=== PATIENT | female | born 1940 | race Caucasian/White ===

== ENCOUNTER 2016-02-07 12:15 | Inpatient (IN) | payer OTHER ==
[~2016-02-07] VITALS: Ht 160 cm; Wt 118.0 kg
[~2016-02-07 12:15] MED LIST: ADVAIR HFA120 INHAL2 IH; ALBUTEROL SULF8.5 GM IH; ALBUTEROL17 GM IH; ALDACTONE25 MG PO; ASPIR 8181 M1 PO; ASPIRIN81 M2 PO; Aldactone PO; BENADRYL25 MG PO; BYSTOLIC10 MG PO; BYSTOLIC5 MG PO; Bystolic PO; CEFTIN500 MG PO; CRESTOR10 MG PO; CRESTOR5 MG PO; DICLOFENAC SODI75 MG PO; DILTIAZEM 24HR120 MG PO; FLONASE16 G1 BOTH NARES; FUROSEMIDE20 MG PO; Flonase BOTH NARES; Flonase NS; HYDROCHLOROTH12.5 M3 PO; JANUVIA100 MG PO; JANUVIA25 M1 PO; Januvia PO; KEFLEX500 MG PO; LANTUS 10100 UNITS/ SC; LASIX20 MG PO; LASIX40 MG PO; LASIX80 MG PO; LEVEMIR100 UNIT/2 SC; Lasix PO; MAVIK4 MG PO; Mavik PO; NORCO 5/3251 TABLET PO; NOVOLOG PE100 UNITS/ SC; NUCYNTA50 MG PO; OXYCODONE HCL5 M1 PO; PEPCID20 MG PO; PRADAXA150 MG PO; PROAIR HFA8.5 GM IH; Pradaxa PO; Proventil,Ventolin H IH; ROCEPHIN1000 MG IV; SOLU-MEDRO125 MG/21 IV; SPIRIVA1 INHALATI IH; SPIRONOLACTONE25 MG PO; STIOLTO RESPIMAT4 GM IH; TARKA 4/2401 TABLET PO; TEKTURNA300 MG PO; TRAMADOL; TRAMADOL HCL50 MG PO; ULTRAM50 MG PO; Ultram PO; VESICARE10 MG PO; Vitamin D, Drisdol PO
[2016-02-07] MEDS ORDERED: LOPRESSOR5 MG/5 ML IV (12:47)
[2016-02-07] MEDS ORDERED: SPIRIVA1 INHALATI IH (12:48)
[2016-02-07] MEDS ORDERED: COLACE100 MG PO (12:49)
[2016-02-07] MEDS ORDERED: SALINE FLUSH 5 M5 ML IV (12:49)
[2016-02-07] MEDS ORDERED: TYLENOL REGULA325 MG PO (12:50)
[2016-02-07 13:52] LABS: POINT-OF-CARE METER ID UU13113720
[2016-02-07 15:14] VITALS: BP 129/73
[2016-02-07 21:24] LABS: POINT-OF-CARE METER ID UU14174215
[2016-02-07 21:42] LABS: POINT-OF-CARE METER ID UU13113720
[2016-02-08 00:12] VITALS: BP 124/86
[2016-02-08 04:00] VITALS: BP 155/98
[2016-02-08 07:39] LABS: POINT-OF-CARE METER ID UU13113720
[2016-02-08 10:41] VITALS: BP 153/77
[2016-02-08 11:31] LABS: POINT-OF-CARE METER ID UU13113720
[2016-02-08 15:25] VITALS: BP 141/89
[2016-02-08 15:29] LABS: ANION GAP 11 MEQ/L (2-14); CHLORIDE 98 MEQ/L (99-109); GFR ESTIMATE (CALCULATED) 57 mL/min/; GLUCOSE 298 mg/dL (70-99); MAGNESIUM 2.1 mg/dl (1.3-2.7); POTASSIUM 4.4 MEQ/L (3.7-5.4); SAMPLE HEMOLYSIS CHECK 0; SAMPLE ICTERIC CHECK 0; SAMPLE LIPEMIA CHECK 0; SODIUM 135 MEQ/L (136-147); UREA NITROGEN (BUN) 34 mg/dL (9-23)
[2016-02-08 16:28] LABS: POINT-OF-CARE METER ID UU13113720
[2016-02-08 22:01] LABS: POINT-OF-CARE METER ID UU13113720
[2016-02-09 04:00] VITALS: BP 137/87
[2016-02-09 07:19] LABS: POINT-OF-CARE METER ID UU13113720
[2016-02-09 11:26] LABS: POINT-OF-CARE METER ID UU13113720
[2016-02-09 15:54] VITALS: BP 179/99
[2016-02-09 16:22] VITALS: BP 136/76
[2016-02-09 16:31] LABS: POINT-OF-CARE METER ID UU13113720
[2016-02-09 21:02] LABS: POINT-OF-CARE METER ID UU13113720
[2016-02-10 05:47] VITALS: BP 140/72
[2016-02-10 07:32] LABS: POINT-OF-CARE METER ID UU14174215
[2016-02-10 11:03] LABS: POINT-OF-CARE METER ID UU14174215
[2016-02-10 14:43] VITALS: BP 117/77
[2016-02-10 16:33] LABS: POINT-OF-CARE METER ID UU14174215
[2016-02-10 21:04] LABS: POINT-OF-CARE METER ID UU14174215
[2016-02-11 05:39] VITALS: BP 133/71
[2016-02-11 06:52] LABS: POINT-OF-CARE METER ID UU14174215; POINT-OF-CARE USER ID ENVGAF
[2016-02-11 11:15] LABS: POINT-OF-CARE METER ID UU14174215; POINT-OF-CARE USER ID ENVGAF
[2016-02-11 16:00] VITALS: BP 112/68
[2016-02-11 17:03] LABS: POINT-OF-CARE METER ID UU14174215
[2016-02-11 21:20] LABS: POINT-OF-CARE METER ID UU14174215
[2016-02-12 05:37] VITALS: BP 143/80
[2016-02-12 07:26] LABS: POINT-OF-CARE METER ID UU13113720
[2016-02-12 11:38] LABS: POINT-OF-CARE METER ID UU13113720
[2016-02-12 15:00] VITALS: BP 127/64
[2016-02-12 16:39] LABS: POINT-OF-CARE METER ID UU14174215
[2016-02-12 20:55] LABS: POINT-OF-CARE METER ID UU14174215; POINT-OF-CARE USER ID 610211320
[2016-02-13 05:52] VITALS: BP 130/77
[2016-02-13 06:26] LABS: EOSINOPHIL (%) 0.6 % (0-5); EOSINOPHIL COUNT 0.1 K/uL (0-0.3); HEMATOCRIT 40.5 % (36.0-46.0); IMMATURE GRANULOCYTE (%) 2.3 % (0.0-0.7); IMMATURE GRANULOCYTE COUNT 0.3 K/uL; LYMPHOCYTE COUNT 1.2 K/uL (1.0-2.8); MCH 29.5 PG (29.0-34.0); MCHC 31.6 G/DL (30.0-36.0); MCV 93.3 FL (83-99); MEAN PLAT.VOLUME 10.8 uM^3 (9.5-12.4); MONOCYTE (%) 4.6 % (3-12); MONOCYTE COUNT 0.5 K/uL (0-0.8); NEUTROPHIL COUNT 9.2 K/uL (1.8-6.4); PLATELET COUNT 237 K/uL (156-360); RBC DIS.WIDTH-CV 15.6 % (11.8-14.6); RBC DIS.WIDTH-SD 52.5 % (39-53); RED BLOOD COUNT 4.34 M/uL (3.80-5.20)
[2016-02-13 06:27] LABS: WHITE BLOOD COUNT 11.2 K/uL (4.1-10.2)
[2016-02-13 06:39] LABS: ALKALINE PHOSPHATASE 53 IU/L (3-129); ANION GAP 9 MEQ/L (2-14); CHLORIDE 98 MEQ/L (99-109); GFR ESTIMATE (CALCULATED) 57 mL/min/; GLUCOSE 91 mg/dL (70-99); POTASSIUM 4.1 MEQ/L (3.7-5.4); SAMPLE HEMOLYSIS CHECK 0; SAMPLE ICTERIC CHECK 0; SAMPLE LIPEMIA CHECK 0; SODIUM 139 MEQ/L (136-147); TOTAL BILIRUBIN 1.1 MG/DL (0.0-1.0); UREA NITROGEN (BUN) 25 mg/dL (9-23)
[2016-02-13 06:54] LABS: HEMATOLOGY COMMENT 1 SMEAR COMPATIBLE; USER ID CCL
[2016-02-13 08:00] VITALS: BP 124/71
[2016-02-13 08:30] LABS: POINT-OF-CARE METER ID UU13113720
[2016-02-13 11:47] LABS: POINT-OF-CARE METER ID UU13113720
[2016-02-13 15:00] VITALS: BP 128/59
[2016-02-13 16:53] LABS: POINT-OF-CARE METER ID UU13113720
[2016-02-13 21:35] LABS: POINT-OF-CARE METER ID UU13113720
[2016-02-14 04:00] VITALS: BP 111/68
[2016-02-14 07:31] LABS: POINT-OF-CARE METER ID UU14174215
[2016-02-14 11:57] LABS: POINT-OF-CARE METER ID UU13113720
[2016-02-14 15:33] VITALS: BP 115/65
[2016-02-14 16:03] LABS: POINT-OF-CARE METER ID UU13113720
[2016-02-14 20:57] LABS: POINT-OF-CARE METER ID UU13113720
[2016-02-15 05:27] VITALS: BP 120/75
[2016-02-15 07:30] LABS: POINT-OF-CARE METER ID UU14174215; POINT-OF-CARE USER ID AHSSSJB31
[2016-02-15 11:57] LABS: POINT-OF-CARE METER ID UU13113720
[2016-02-15 16:20] LABS: POINT-OF-CARE METER ID UU13113720
[2016-02-15 21:17] LABS: POINT-OF-CARE METER ID UU13113720; POINT-OF-CARE USER ID 610211320
[2016-02-16] VITALS: BP 122/61
[2016-02-16 05:27] VITALS: BP 126/67
[2016-02-16 06:21] LABS: HEMATOCRIT 35.4 % (36.0-46.0); MCH 30.1 PG (29.0-34.0); MCHC 31.9 G/DL (30.0-36.0); MCV 94.4 FL (83-99); MEAN PLAT.VOLUME 10.5 uM^3 (9.5-12.4); PLATELET COUNT 208 K/uL (156-360); RBC DIS.WIDTH-CV 16.3 % (11.8-14.6); RBC DIS.WIDTH-SD 55.3 % (39-53); RED BLOOD COUNT 3.75 M/uL (3.80-5.20); WHITE BLOOD COUNT 8.4 K/uL (4.1-10.2)
[2016-02-16 06:31] LABS: EOSINOPHIL (%) 0.6 % (0-5); EOSINOPHIL COUNT 0.1 K/uL (0-0.3); IMMATURE GRANULOCYTE (%) 1.2 % (0.0-0.7); IMMATURE GRANULOCYTE COUNT 0.1 K/uL; LYMPHOCYTE COUNT 0.9 K/uL (1.0-2.8); MONOCYTE (%) 6.9 % (3-12); MONOCYTE COUNT 0.6 K/uL (0-0.8); NEUTROPHIL (%) 80.5 % (45-76); NEUTROPHIL COUNT 6.8 K/uL (1.8-6.4)
[2016-02-16 07:44] LABS: POINT-OF-CARE METER ID UU13113720
[2016-02-16 11:47] LABS: POINT-OF-CARE METER ID UU13113720; POINT-OF-CARE USER ID AHSSSJB31
[2016-02-16 15:25] VITALS: BP 104/66
[2016-02-16 16:41] LABS: POINT-OF-CARE METER ID UU13113720
[2016-02-16 21:41] LABS: POINT-OF-CARE METER ID UU13113720
[2016-02-17 04:46] VITALS: BP 142/73
[2016-02-17 05:34] LABS: MCH 30.4 PG (29.0-34.0); MCHC 32.4 G/DL (30.0-36.0); MCV 93.9 FL (83-99); MEAN PLAT.VOLUME 10.6 uM^3 (9.5-12.4); PLATELET COUNT 201 K/uL (156-360); RBC DIS.WIDTH-CV 16.4 % (11.8-14.6); RBC DIS.WIDTH-SD 55.7 % (39-53); RED BLOOD COUNT 3.62 M/uL (3.80-5.20); WHITE BLOOD COUNT 7.6 K/uL (4.1-10.2)
[2016-02-17 06:12] LABS: ALKALINE PHOSPHATASE 49 IU/L (3-129); ANION GAP 6 MEQ/L (2-14); CHLORIDE 99 MEQ/L (99-109); GFR ESTIMATE (CALCULATED) 57 mL/min/; GLUCOSE 108 mg/dL (70-99); MAGNESIUM 2.4 mg/dl (1.3-2.7); SAMPLE HEMOLYSIS CHECK 0; SAMPLE ICTERIC CHECK 0; SAMPLE LIPEMIA CHECK 0; SODIUM 137 MEQ/L (136-147); TOTAL BILIRUBIN 1.1 MG/DL (0.0-1.0); UREA NITROGEN (BUN) 23 mg/dL (9-23)
[2016-02-17 06:24] LABS: POTASSIUM 5.1 MEQ/L (3.7-5.4)
[2016-02-17 07:26] LABS: POINT-OF-CARE METER ID UU14174215
[2016-02-17 11:47] LABS: POINT-OF-CARE METER ID UU14174215
[2016-02-17 15:12] VITALS: BP 120/62
[2016-02-17 16:20] LABS: POINT-OF-CARE METER ID UU14174215
[2016-02-17 21:26] LABS: POINT-OF-CARE METER ID UU14174215
[2016-02-18 05:00] VITALS: BP 126/61
[2016-02-18 07:33] LABS: POINT-OF-CARE METER ID UU14174215
[2016-02-18 10:46] LABS: POINT-OF-CARE METER ID UU14174215
[2016-02-18 11:54] LABS: POINT-OF-CARE METER ID UU14174215
[2016-02-18 15:51] VITALS: BP 137/63
[2016-02-18 16:34] LABS: POINT-OF-CARE METER ID UU14174215
[2016-02-18 21:27] LABS: POINT-OF-CARE METER ID UU13113720
[2016-02-19 06:29] VITALS: BP 107/68
[2016-02-19 07:40] LABS: POINT-OF-CARE METER ID UU14174215
[2016-02-19 12:00] LABS: POINT-OF-CARE METER ID UU14174215
[2016-02-19 15:00] VITALS: BP 124/60
[2016-02-19 16:50] LABS: POINT-OF-CARE METER ID UU14174215
[2016-02-19 21:17] LABS: POINT-OF-CARE METER ID UU14174215; POINT-OF-CARE USER ID 610211320
[2016-02-20 05:18] LABS: HEMATOCRIT 33.2 % (36.0-46.0); MCH 30.7 PG (29.0-34.0); MCHC 32.2 G/DL (30.0-36.0); MCV 95.1 FL (83-99); MEAN PLAT.VOLUME 10.3 uM^3 (9.5-12.4); PLATELET COUNT 160 K/uL (156-360); RBC DIS.WIDTH-CV 17.1 % (11.8-14.6); RED BLOOD COUNT 3.49 M/uL (3.80-5.20); WHITE BLOOD COUNT 5.6 K/uL (4.1-10.2)
[2016-02-20 05:45] LABS: ALKALINE PHOSPHATASE 56 IU/L (3-129); ANION GAP 8 MEQ/L (2-14); CHLORIDE 100 MEQ/L (99-109); GFR ESTIMATE (CALCULATED) > 59 mL/min/; GLUCOSE 102 mg/dL (70-99); SAMPLE HEMOLYSIS CHECK 0; SAMPLE ICTERIC CHECK 0; SAMPLE LIPEMIA CHECK 0; SODIUM 138 MEQ/L (136-147); TOTAL BILIRUBIN 1.1 MG/DL (0.0-1.0); UREA NITROGEN (BUN) 17 mg/dL (9-23)
[2016-02-20 05:47] LABS: POTASSIUM 3.8 MEQ/L (3.7-5.4)
[2016-02-20 06:10] VITALS: BP 130/73
[2016-02-20 07:29] LABS: POINT-OF-CARE METER ID UU13113720
[2016-02-20 10:55] LABS: POINT-OF-CARE METER ID UU13113720
[2016-02-20 12:45] LABS: POINT-OF-CARE METER ID UU14174215
[2016-02-20 15:21] VITALS: BP 111/59
[2016-02-20 16:33] LABS: POINT-OF-CARE METER ID UU13113720
[2016-02-20 21:33] LABS: POINT-OF-CARE METER ID UU13113720; POINT-OF-CARE USER ID 610211320
[2016-02-21 05:30] VITALS: BP 124/66
[2016-02-21 07:20] LABS: POINT-OF-CARE METER ID UU13113720
[2016-02-21 11:32] LABS: POINT-OF-CARE METER ID UU13113720
[2016-02-21] MEDS ORDERED: VITAMIN D-32000 UNI2 PO (15:27)
[2016-02-21] MEDS ORDERED: GABAPENTIN300 MG PO (15:27)
[2016-02-21] MEDS ORDERED: STIOLTO RESPIMAT4 GM IH (15:27)
[2016-02-21 15:30] VITALS: BP 115/55
[2016-02-21 16:20] LABS: POINT-OF-CARE METER ID UU13113720
[2016-02-21] MEDS ORDERED: ADVAIR HFA120 INHAL2 IH (17:53)
== END 2016-02-21 18:25 | disposition home health service (06) | DRG 871 ==
LOC: 3WEST 12:15
PROVIDERS: Internal Medicine Cardiovascular Disease; Physical Medicine & Rehabilitation Pain Medicine; Psychiatry & Neurology Neurology
PROC: F07M0ZZ Range of Motion and Joint Mobility Treatment of Musculoskeletal System - Whole Body (ICD-10-PCS; principal; 2016-02-07)
PROC: 5A09357 Assistance with Respiratory Ventilation, Less than 24 Consecutive Hours, Continuous Positive Airway Pressure (ICD-10-PCS; 2016-02-07)
DX: A41.51 Sepsis due to Escherichia coli [E. coli] (principal); G93.40 Encephalopathy, unspecified; N39.0 Urinary tract infection, site not specified; I50.32 Chronic diastolic (congestive) heart failure; G72.81 Critical illness myopathy; Z68.42 Body mass index [BMI] 45.0-49.9, adult; J44.1 Chronic obstructive pulmonary disease with (acute) exacerbation; I48.0 Paroxysmal atrial fibrillation; E11.9 Type 2 diabetes mellitus without complications; G47.33 Obstructive sleep apnea (adult) (pediatric); I10 Essential (primary) hypertension; E55.9 Vitamin D deficiency, unspecified; I34.0 Nonrheumatic mitral (valve) insufficiency; E78.5 Hyperlipidemia, unspecified; I27.2 Other secondary pulmonary hypertension; E66.9 Obesity, unspecified; I73.9 Peripheral vascular disease, unspecified; I77.1 Stricture of artery; M48.06 Spinal stenosis, lumbar region; I71.4 Abdominal aortic aneurysm, without rupture; N28.9 Disorder of kidney and ureter, unspecified; Z88.1 Allergy status to other antibiotic agents; Z79.82 Long term (current) use of aspirin; Z79.4 Long term (current) use of insulin; Z87.891 Personal history of nicotine dependence; Z99.81 Dependence on supplemental oxygen; Z99.89 Dependence on other enabling machines and devices; S80.02XA Contusion of left knee, initial encounter; W19.XXXA Unspecified fall, initial encounter
CPT/HCPCS: 71020; 73564; 80048; 80053; 82306; 82607; 82746; 82948; 83735; 83880; 85025; 85027; 93925; 94640; 94640 76; 94660; 94760; 94799; 97110 GO; 97530 GP; J0696; J1815; J2920; J7050; J7512

== ENCOUNTER 2016-02-25 21:13 | Inpatient (IN) | payer OTHER ==
[~2016-02-25] VITALS: Ht 160 cm; Wt 118.7 kg
[~2016-02-25 21:13] MED LIST changes: +COLACE100 MG PO; +GABAPENTIN300 MG PO; +LOPRESSOR5 MG/5 ML IV; +SALINE FLUSH 5 M5 ML IV; +TYLENOL REGULA325 MG PO; +VITAMIN D-32000 UNI2 PO
[2016-02-25 21:38] LABS: MCH 30.3 PG (29.0-34.0); MCHC 32.2 G/DL (30.0-36.0); MCV 94.1 FL (83-99); MEAN PLAT.VOLUME 9.3 uM^3 (9.5-12.4); PLATELET COUNT 191 K/uL (156-360); RBC DIS.WIDTH-SD 55.6 % (39-53); WHITE BLOOD COUNT 6.2 K/uL (4.1-10.2)
[2016-02-25 21:47] LABS: CHLORIDE 100 mEq/L (99-109); SODIUM 133 mEq/L (136-147)
[2016-02-25 21:49] LABS: GLUCOSE 174 mg/dL (70-99)
[2016-02-25 21:50] LABS: ANION GAP 11 MEQ/L (2-14); INTER. NORMALIZED RATIO 1.3; PROTHROMBIN TIME 12.8 (9.2-11.2); PTT 49.5 (25-32)
[2016-02-25 21:53] LABS: GFR ESTIMATE (CALCULATED) 57 mL/min/; UREA NITROGEN (BUN) 16 mg/dL (9-23)
[2016-02-25 21:58] LABS: TROP-I INTERPRETATION NEGATIVE; TROPONIN-I < 0.01 ng/mL (0.0-0.30)
[2016-02-25 22:01] LABS: BASE EXCESS 1.4 mEq/L (-3 to +3); BICARBONATE 24.6 mEq/L (22-26); CARBOXY HGB 1.9 % (0-5); PCO2 33 mm Hg (35-45); pH 7.48 (7.35-7.45)
[2016-02-25 22:02] LABS: COMMENTS - BLOOD GASES C+; DEVICE PB840; FI02 100 %; MODE SPON; PEEP 5 CM/H20; PO2 465 mm Hg (80-100); PRES. SUPPORT 10 CM/H2O; SITE LR; TOTAL RESP RATE 24 resp/min
[2016-02-25] MEDS ORDERED: JANUVIA100 MG PO (23:06)
[2016-02-25] MEDS ORDERED: LANTUS 3 M100 UNITS1 SC (23:10)
[2016-02-26] VITALS (7 sets, daily range): BP systolic 112–178; BP diastolic 59–86
[2016-02-26 02:11] LABS: TOTAL BILIRUBIN 1.7 mg/dL (0.0-1.0)
[2016-02-26 02:13] LABS: ALKALINE PHOSPHATASE 79 IU/L (3-129)
[2016-02-26 02:52] LABS: PREALBUMIN 3.3 mg/dL (10-40)
[2016-02-26 07:57] LABS: POINT-OF-CARE METER ID UU13113698
[2016-02-26 14:02] LABS: GLUCOSE 354 mg/dL (70-99)
[2016-02-26 15:41] LABS: TROP-I INTERPRETATION NEGATIVE; TROPONIN-I < 0.01 ng/mL (0.0-0.30)
[2016-02-27 04:10] VITALS: BP 115/77
[2016-02-27 06:48] LABS: HEMATOCRIT 27.3 % (36.0-46.0); MCH 30.5 PG (29.0-34.0); MCHC 32.6 G/DL (30.0-36.0); MCV 93.5 FL (83-99); MEAN PLAT.VOLUME 10.3 uM^3 (9.5-12.4); PLATELET COUNT 213 K/uL (156-360); RBC DIS.WIDTH-CV 16.9 % (11.8-14.6); RBC DIS.WIDTH-SD 57.5 % (39-53); RED BLOOD COUNT 2.92 M/uL (3.80-5.20); WHITE BLOOD COUNT 5.4 K/uL (4.1-10.2)
[2016-02-27 07:36] LABS: ANION GAP 10 MEQ/L (2-14); CHLORIDE 103 MEQ/L (99-109); GFR ESTIMATE (CALCULATED) 51 mL/min/; GLUCOSE 415 mg/dL (70-99); POTASSIUM 4.6 MEQ/L (3.7-5.4); SAMPLE HEMOLYSIS CHECK 0; SAMPLE ICTERIC CHECK 0; SAMPLE LIPEMIA CHECK 0; SODIUM 135 MEQ/L (136-147); UREA NITROGEN (BUN) 26 mg/dL (9-23)
[2016-02-27 08:04] VITALS: BP 121/77
[2016-02-27 08:11] LABS: POINT-OF-CARE USER ID ENVKC36
[2016-02-27 12:30] VITALS: BP 118/77
[2016-02-27 17:00] VITALS: BP 135/76
[2016-02-27 20:19] VITALS: BP 137/67
[2016-02-27 23:31] VITALS: BP 132/71
[2016-02-28 04:12] VITALS: BP 137/76
[2016-02-28 06:40] LABS: HEMATOCRIT 28.5 % (36.0-46.0); MCH 30.1 PG (29.0-34.0); MCHC 32.3 G/DL (30.0-36.0); MCV 93.1 FL (83-99); MEAN PLAT.VOLUME 10.1 uM^3 (9.5-12.4); PLATELET COUNT 245 K/uL (156-360); RBC DIS.WIDTH-CV 16.8 % (11.8-14.6); RBC DIS.WIDTH-SD 56.9 % (39-53); RED BLOOD COUNT 3.06 M/uL (3.80-5.20); WHITE BLOOD COUNT 6.4 K/uL (4.1-10.2)
[2016-02-28 07:01] LABS: EOSINOPHIL (%) 0.2 % (0-5); IMMATURE GRANULOCYTE (%) 1.1 % (0.0-0.7); IMMATURE GRANULOCYTE COUNT 0.1 K/uL; LYMPHOCYTE COUNT 0.3 K/uL (1.0-2.8); MONOCYTE (%) 7.8 % (3-12); MONOCYTE COUNT 0.5 K/uL (0-0.8); NEUTROPHIL (%) 86.5 % (45-76); NEUTROPHIL COUNT 5.6 K/uL (1.8-6.4)
[2016-02-28 07:03] LABS: ANION GAP 10 MEQ/L (2-14); CHLORIDE 106 MEQ/L (99-109); GFR ESTIMATE (CALCULATED) 57 mL/min/; GLUCOSE 250 mg/dL (70-99); MAGNESIUM 2.2 mg/dl (1.3-2.7); POTASSIUM 4.4 MEQ/L (3.7-5.4); SAMPLE HEMOLYSIS CHECK 0; SAMPLE ICTERIC CHECK 0; SAMPLE LIPEMIA CHECK 0; SODIUM 139 MEQ/L (136-147); UREA NITROGEN (BUN) 28 mg/dL (9-23)
[2016-02-28 07:47] VITALS: BP 152/82
[2016-02-28 11:27] VITALS: BP 143/88
[2016-02-28 12:04] LABS: POINT-OF-CARE USER ID ENVKC36
[2016-02-28 12:05] LABS: POINT-OF-CARE METER ID UU13113781; POINT-OF-CARE USER ID ENVKC36
[2016-02-28 15:55] VITALS: BP 138/72
[2016-02-28 19:22] VITALS: BP 159/82
[2016-02-28 23:33] VITALS: BP 174/74
[2016-02-29 04:31] VITALS: BP 160/76
[2016-02-29 07:59] VITALS: BP 166/83
[2016-02-29 12:15] VITALS: BP 160/75
[2016-02-29 15:38] VITALS: BP 156/74
[2016-02-29 20:00] VITALS: BP 142/90
[2016-02-29 23:20] VITALS: BP 158/90
[2016-03-01 02:04] VITALS: BP 133/77
[2016-03-01 04:22] VITALS: BP 150/76
[2016-03-01 06:55] LABS: ANION GAP 10 MEQ/L (2-14); CHLORIDE 99 MEQ/L (99-109); GFR ESTIMATE (CALCULATED) > 59 mL/min/; GLUCOSE 236 mg/dL (70-99); POTASSIUM 4.5 MEQ/L (3.7-5.4); SAMPLE HEMOLYSIS CHECK 0; SAMPLE ICTERIC CHECK 0; SAMPLE LIPEMIA CHECK 0; SODIUM 139 MEQ/L (136-147); UREA NITROGEN (BUN) 25 mg/dL (9-23)
[2016-03-01 07:41] VITALS: BP 148/88
[2016-03-01 08:18] LABS: HEMATOCRIT 32.4 % (36.0-46.0); MCH 29.6 PG (29.0-34.0); MCHC 31.8 G/DL (30.0-36.0); MCV 93.1 FL (83-99); MEAN PLAT.VOLUME 10.2 uM^3 (9.5-12.4); PLATELET COUNT 311 K/uL (156-360); RBC DIS.WIDTH-CV 16.8 % (11.8-14.6); RBC DIS.WIDTH-SD 57.4 % (39-53); RED BLOOD COUNT 3.48 M/uL (3.80-5.20)
[2016-03-01 08:38] LABS: POINT-OF-CARE METER ID UU14174225
[2016-03-01 12:00] LABS: POINT-OF-CARE METER ID UU14174225
[2016-03-01 12:10] VITALS: BP 139/78
[2016-03-01 16:24] VITALS: BP 140/81
[2016-03-01 20:16] VITALS: BP 146/77
[2016-03-01 22:18] LABS: POINT-OF-CARE METER ID UU14174225
[2016-03-02] VITALS: BP 140/86
[2016-03-02 04:00] VITALS: BP 150/89
[2016-03-02 07:19] VITALS: BP 146/86
[2016-03-02 11:25] VITALS: BP 148/89
[2016-03-02] MEDS ORDERED: FUROSEMIDE80 MG PO (12:51)
[2016-03-02] MEDS ORDERED: PREDNISONE20 MG PO (12:51)
[2016-03-02] MEDS ORDERED: DUONEB 2.5-0.5 M3 ML AEROSOL ×3 (13:07→13:32)
[2016-03-02] MEDS ORDERED: OXYGEN NS (13:13)
[2016-03-02] MEDS ORDERED: NORCO 5/3251 TABLET PO (14:20)
== END 2016-03-02 15:07 | DRG 190 ==
LOC: EME → EDBD 21:13 → EME 21:13 → 4EAST 02-26 01:15 → EDOF 02-26 01:15 → 5SOUTH 02-26 01:15 → 4EAST 02-26 02:51 → 5SOUTH 02-27 23:16
PROVIDERS: Emergency Medicine; Hospitalist; Internal Medicine; Internal Medicine Pulmonary Disease; Physician Assistant; Student in an Organized Health Care Education/Training Program
PROC: 5A0935Z Assistance with Respiratory Ventilation, Less than 24 Consecutive Hours (ICD-10-PCS; principal; 2016-02-25)
DX: J44.1 Chronic obstructive pulmonary disease with (acute) exacerbation (principal); J96.01 Acute respiratory failure with hypoxia; J44.0 Chronic obstructive pulmonary disease with (acute) lower respiratory infection; J20.9 Acute bronchitis, unspecified; I50.33 Acute on chronic diastolic (congestive) heart failure; J90 Pleural effusion, not elsewhere classified; I48.1 Persistent atrial fibrillation; G93.1 Anoxic brain damage, not elsewhere classified; E11.65 Type 2 diabetes mellitus with hyperglycemia; N13.0 Hydronephrosis with ureteropelvic junction obstruction; N28.9 Disorder of kidney and ureter, unspecified; E66.01 Morbid (severe) obesity due to excess calories; Z68.42 Body mass index [BMI] 45.0-49.9, adult; E80.6 Other disorders of bilirubin metabolism; I10 Essential (primary) hypertension; E78.5 Hyperlipidemia, unspecified; H91.93 Unspecified hearing loss, bilateral; R65.10 Systemic inflammatory response syndrome (SIRS) of non-infectious origin without acute organ dysfunction; I73.9 Peripheral vascular disease, unspecified; M48.06 Spinal stenosis, lumbar region; D64.9 Anemia, unspecified; I27.2 Other secondary pulmonary hypertension; I08.3 Combined rheumatic disorders of mitral, aortic and tricuspid valves; Z87.440 Personal history of urinary (tract) infections; Z87.891 Personal history of nicotine dependence; Z79.01 Long term (current) use of anticoagulants; Z79.4 Long term (current) use of insulin; Z79.82 Long term (current) use of aspirin
CPT/HCPCS: 36600; 70450; 71010; 71020; 73700; 76700; 80048; 80076; 80202; 81003; 82140; 82803; 82948; 83605; 83735; 83880; 84134; 84484; 84999; 85025; 85027; 85610; 85730; 87040; 87070; 87205; 93005; 93306; 93970; 94002; 94640; 94640 76; 94760; 94799; 97530 GO; 99202; 99281; 99285; J0692; J1815; J1940; J2930; J3370; J7050; J7512

== ENCOUNTER 2016-11-12 07:24 | Inpatient (IN) | payer OTHER ==
[~2016-11-12] VITALS: Ht 160 cm; Wt 107.4 kg
[~2016-11-12 07:24] MED LIST changes: +ACIDOPHILUS100 M1 PO; +AMOX TR-K CLV1 EAC3 PO; +ANUCORT-HC25 MG PR; +ANUSOL HC,ANUCO25 MG PR; +CALCIUM 500 MG1 EACH PO; +CEPACOL SORE T1 EAC9 MM; +DEXTROSE 50%50 ML IV; +DULCOLAX10 MG PR; +DUONEB 2.5-0.5 M3 ML AEROSOL; +FLEET ENEMA-AD118 ML PR; +FUROSEMIDE80 MG PO; +GLUCAGEN1 MG IM; +GLUTOSE 1537.5 GM PO; +LANTUS 3 M100 UNITS1 SC; +MILK OF MAGN PO; +MUCINEX600 MG PO; +NOVOLOG 10100 UNITS/ SC; +OXYGEN NS; +POTASSIUM CHLO20 ME2 PO; +PREDNISONE20 MG PO; +[UNRECOGNIZED DRUG - OTHER] TP
[2016-11-12 08:02] LABS: HEMATOCRIT 39.9 % (36.0-46.0); MCH 31.2 PG (29.0-34.0); MCHC 32.6 G/DL (30.0-36.0); MCV 95.7 FL (83-99); MEAN PLAT.VOLUME 10.2 uM^3 (9.5-12.4); PLATELET COUNT 165 K/uL (156-360); RBC DIS.WIDTH-CV 14.9 % (11.8-14.6); RBC DIS.WIDTH-SD 52.4 % (39-53); RED BLOOD COUNT 4.17 M/uL (3.80-5.20); WHITE BLOOD COUNT 8.5 K/uL (4.1-10.2)
[2016-11-12 08:14] LABS: CHLORIDE 106 mEq/L (99-109); SODIUM 140 mEq/L (136-147)
[2016-11-12 08:16] LABS: GLUCOSE 106 mg/dL (70-99)
[2016-11-12 08:17] LABS: ANION GAP 6 MEQ/L (2-14)
[2016-11-12 08:18] LABS: TOTAL BILIRUBIN 1.6 mg/dL (0.0-1.0)
[2016-11-12 08:19] LABS: ALKALINE PHOSPHATASE 69 IU/L (3-129)
[2016-11-12 08:20] LABS: GFR ESTIMATE (CALCULATED) 57 mL/min/
[2016-11-12 08:21] LABS: UREA NITROGEN (BUN) 18 mg/dL (9-23)
[2016-11-12] MEDS ORDERED: SPIRIVA18 MCG IH (12:20)
[2016-11-12] MEDS ORDERED: LASIX40 MG PO (12:23)
[2016-11-12] MEDS ORDERED: ELIQUIS5 MG PO (12:25)
[2016-11-12] MEDS ORDERED: LOPRESSOR25 MG PO (12:29)
[2016-11-12] MEDS ORDERED: BYSTOLIC10 MG PO (12:29)
[2016-11-12] MEDS ORDERED: ADVAIR HFA120 INHALA IH (12:31)
[2016-11-12 14:00] LABS: TROP-I INTERPRETATION NEGATIVE; TROPONIN-I < 0.01 ng/mL (0.0-0.30)
[2016-11-12 17:31] VITALS: BP 162/89
[2016-11-12 17:36] LABS: POINT-OF-CARE METER ID UU14188625
[2016-11-12 19:26] LABS: TROP-I INTERPRETATION NEGATIVE; TROPONIN-I 0.02 ng/mL (0.0-0.30)
[2016-11-12 20:27] VITALS: BP 141/78
[2016-11-12 21:14] LABS: POINT-OF-CARE METER ID UU13113717
[2016-11-13] VITALS (7 sets, daily range): BP systolic 108–144; BP diastolic 67–90
[2016-11-13 02:11] LABS: TROP-I INTERPRETATION NEGATIVE; TROPONIN-I 0.02 ng/mL (0.0-0.30)
[2016-11-13 07:02] LABS: ANION GAP 7 MEQ/L (2-14); CHLORIDE 105 MEQ/L (99-109); GFR ESTIMATE (CALCULATED) > 59 mL/min/; GLUCOSE 117 mg/dL (70-99); POTASSIUM 3.9 MEQ/L (3.7-5.4); SAMPLE HEMOLYSIS CHECK 0; SAMPLE ICTERIC CHECK 0; SAMPLE LIPEMIA CHECK 0; SODIUM 142 MEQ/L (136-147); UREA NITROGEN (BUN) 19 mg/dL (9-23)
[2016-11-13 11:36] LABS: TROP-I INTERPRETATION NEGATIVE; TROPONIN-I 0.02 ng/mL (0.0-0.30)
[2016-11-13 12:35] LABS: POINT-OF-CARE METER ID UU14188625
[2016-11-13 20:34] LABS: POINT-OF-CARE METER ID UU14188625
[2016-11-14 03:17] VITALS: BP 133/83
[2016-11-14 07:13] LABS: ANION GAP 9 MEQ/L (2-14); CHLORIDE 103 MEQ/L (99-109); GFR ESTIMATE (CALCULATED) 46 mL/min/; POTASSIUM 4.1 MEQ/L (3.7-5.4); SAMPLE HEMOLYSIS CHECK 0; SAMPLE ICTERIC CHECK 0; SAMPLE LIPEMIA CHECK 0; SODIUM 140 MEQ/L (136-147); UREA NITROGEN (BUN) 26 mg/dL (9-23)
[2016-11-14 07:17] LABS: GLUCOSE 82 mg/dL (70-99)
[2016-11-14 07:19] LABS: ADD MIUA? NO; BILIRUBIN NEGATIVE; BLOOD NEGATIVE; COLOR YELLOW ((YELLOW)); GLUCOSE (STRIP) NEGATIVE; KETONES NEGATIVE; LEUKOCYTES NEGATIVE; NITRITE NEGATIVE; PROTEIN (STRIP) NEGATIVE; SPECIFIC GRAVITY 1.009 (1.000-1.030); UCUL ADDED? NO; UROBILINOGEN 0.2 MG/DL (0.2-1.0)
[2016-11-14 08:16] VITALS: BP 129/88
[2016-11-14 09:42] LABS: POINT-OF-CARE METER ID UU13113717
[2016-11-14 15:39] VITALS: BP 126/74
[2016-11-14 17:41] LABS: POINT-OF-CARE METER ID UU13113717
[2016-11-14 19:37] VITALS: BP 158/99
[2016-11-14 23:48] VITALS: BP 130/70
[2016-11-15 04:43] VITALS: BP 139/71
[2016-11-15 07:00] VITALS: BP 120/76
[2016-11-15 07:28] LABS: ANION GAP 9 MEQ/L (2-14); CHLORIDE 104 MEQ/L (99-109); GFR ESTIMATE (CALCULATED) > 59 mL/min/; GLUCOSE 93 mg/dL (70-99); POTASSIUM 4.2 MEQ/L (3.7-5.4); SAMPLE HEMOLYSIS CHECK 0; SAMPLE ICTERIC CHECK 0; SAMPLE LIPEMIA CHECK 0; SODIUM 140 MEQ/L (136-147); UREA NITROGEN (BUN) 23 mg/dL (9-23)
[2016-11-15 08:31] LABS: POINT-OF-CARE METER ID UU14188625
[2016-11-15 11:39] VITALS: BP 118/80
[2016-11-15 11:58] LABS: POINT-OF-CARE METER ID UU14188625
[2016-11-15 17:52] LABS: POINT-OF-CARE METER ID UU14188625
[2016-11-15 20:30] VITALS: BP 130/78
[2016-11-15 23:36] VITALS: BP 129/76
[2016-11-16 04:30] VITALS: BP 133/74
[2016-11-16 08:00] VITALS: BP 162/84
[2016-11-16 08:18] LABS: POINT-OF-CARE METER ID UU14188625
[2016-11-16 11:34] VITALS: BP 160/80
[2016-11-16 12:07] LABS: POINT-OF-CARE METER ID UU13113717
[2016-11-16 15:55] VITALS: BP 155/79
[2016-11-16 17:16] LABS: POINT-OF-CARE METER ID UU14188625
[2016-11-16 19:55] VITALS: BP 151/88
[2016-11-16 23:44] VITALS: BP 148/79
[2016-11-17 03:34] VITALS: BP 138/92
[2016-11-17 08:36] LABS: POINT-OF-CARE METER ID UU13113717
[2016-11-17 09:16] VITALS: BP 130/88
[2016-11-17] MEDS ORDERED: FUROSEMIDE40 MG PO (10:59)
[2016-11-17] MEDS ORDERED: METOPROLOL TA37.5 MG PO (11:01)
[2016-11-17 11:46] VITALS: BP 130/90
[2016-11-17] MEDS ORDERED: LASIX20 MG PO (12:16)
[2016-11-17 12:41] LABS: POINT-OF-CARE METER ID UU13113717
== END 2016-11-17 12:48 | disposition home health service (06) | DRG 291 ==
LOC: EME 07:24 → 5SOUTH 12:51 → EDOF 12:51 → ENRESERV 13:14 → CANRESERV 13:42 → ENRESERV 13:55 → 5SOUTH 17:02
PROVIDERS: Internal Medicine; Nurse Practitioner Family; Physician Assistant Medical
DX: I13.0 Hypertensive heart and chronic kidney disease with heart failure and stage 1 through stage 4 chronic kidney disease, or unspecified chronic kidney disease (principal); I50.33 Acute on chronic diastolic (congestive) heart failure; E11.22 Type 2 diabetes mellitus with diabetic chronic kidney disease; N18.3 Chronic kidney disease, stage 3 (moderate); R09.02 Hypoxemia; J43.9 Emphysema, unspecified; I48.91 Unspecified atrial fibrillation; I27.20 Pulmonary hypertension, unspecified; E66.01 Morbid (severe) obesity due to excess calories; Z68.41 Body mass index [BMI] 40.0-44.9, adult; E78.5 Hyperlipidemia, unspecified; G89.29 Other chronic pain; M54.9 Dorsalgia, unspecified; Z79.4 Long term (current) use of insulin; Z80.0 Family history of malignant neoplasm of digestive organs; Z82.5 Family history of asthma and other chronic lower respiratory diseases; Z86.79 Personal history of other diseases of the circulatory system; Z90.710 Acquired absence of both cervix and uterus; Z87.891 Personal history of nicotine dependence
CPT/HCPCS: 71010; 71020; 80048; 80053; 81003; 82948; 83880; 84484; 85027; 93005; 93306; 94640; 94640 76; 94660; 94760; 94799; 99202; 99281; 99285; J1815; J1940; J7512

== ENCOUNTER 2017-01-06 09:32 | Emergency (ER) | payer OTHER ==
[~2017-01-06] VITALS: Ht 160 cm; Wt 107.9 kg
[~2017-01-06 09:32] MED LIST changes: +ADVAIR HFA120 INHALA IH; +ELIQUIS5 MG PO; +FUROSEMIDE40 MG PO; +LOPRESSOR25 MG PO; +METOPROLOL TA37.5 MG PO; +SPIRIVA18 MCG IH
[2017-01-06 10:12] VITALS: BP 138/70
== END 2017-01-06 10:36 | disposition home or self-care (01) ==
LOC: EME 09:32
PROC: 0H9FXZZ Drainage of Right Hand Skin, External Approach (ICD-10-PCS; principal; 2017-01-06)
DX: L03.011 Cellulitis of right finger (principal); E11.9 Type 2 diabetes mellitus without complications; Z79.4 Long term (current) use of insulin; Z79.01 Long term (current) use of anticoagulants; Z87.891 Personal history of nicotine dependence
CPT/HCPCS: 99281; 99282

== ENCOUNTER 2017-02-16 07:58 | Inpatient (IN) | payer OTHER ==
[~2017-02-16] VITALS: Ht 160 cm; Wt 103.6 kg
[2017-02-16 08:36] LABS: HEMATOCRIT 41.8 % (36.0-46.0); HEMOGLOBIN 13.9 G/DL (11.9-15.5); MCH 31.2 PG (29.0-34.0); MCHC 33.3 G/DL (30.0-36.0); MCV 93.7 FL (83-99); PLATELET COUNT 135 K/uL (156-360); RBC DIS.WIDTH-CV 15.7 % (11.8-14.6); RBC DIS.WIDTH-SD 54.1 % (39-53); RED BLOOD COUNT 4.46 M/uL (3.80-5.20); WHITE BLOOD COUNT 6.7 K/uL (4.1-10.2)
[2017-02-16 08:43] LABS: CHLORIDE 104 mEq/L (99-109); POTASSIUM 3.6 mEq/L (3.7-5.4); SODIUM 140 mEq/L (136-147)
[2017-02-16 08:44] LABS: GLUCOSE 99 mg/dL (70-99)
[2017-02-16 08:48] LABS: CREATININE 0.9 mg/dL (0.6-1.3); GFR ESTIMATE (CALCULATED) > 59 mL/min/
[2017-02-16 08:49] LABS: UREA NITROGEN (BUN) 17 mg/dL (9-23)
[2017-02-16] MEDS ORDERED: CARTIA XT120 MG PO ×2 (11:16→12:57)
[2017-02-16 12:47] VITALS: BP 148/86
[2017-02-16] MEDS ORDERED: PROAIR HFA8.5 GM IH (12:53)
[2017-02-16] MEDS ORDERED: LASIX40 MG PO ×2 (12:56)
[2017-02-16] MEDS ORDERED: AZITHROMYCIN250 MG PO (12:58)
[2017-02-16 19:57] VITALS: BP 135/70
[2017-02-16 23:47] VITALS: BP 169/92
[2017-02-17 03:15] VITALS: BP 190/112
[2017-02-17 05:41] LABS: HEMATOCRIT 39.1 % (36.0-46.0); HEMOGLOBIN 12.9 G/DL (11.9-15.5); MCH 30.4 PG (29.0-34.0); MCV 92.2 FL (83-99); PLATELET COUNT 133 K/uL (156-360); RBC DIS.WIDTH-CV 15.4 % (11.8-14.6); RBC DIS.WIDTH-SD 52.2 % (39-53); RED BLOOD COUNT 4.24 M/uL (3.80-5.20); WHITE BLOOD COUNT 4.7 K/uL (4.1-10.2)
[2017-02-17 06:09] LABS: CHLORIDE 104 MEQ/L (99-109); CREATININE 0.9 MG/DL (0.6-1.3); GFR ESTIMATE (CALCULATED) > 59 mL/min/; POTASSIUM 4.3 MEQ/L (3.7-5.4); SODIUM 137 MEQ/L (136-147); UREA NITROGEN (BUN) 21 mg/dL (9-23)
[2017-02-17 06:11] LABS: GLUCOSE 235 mg/dL (70-99)
[2017-02-17 07:37] VITALS: BP 187/84
[2017-02-17 12:09] VITALS: BP 143/84
[2017-02-17 15:27] VITALS: BP 187/92
[2017-02-17 20:01] VITALS: BP 175/97
[2017-02-17 23:49] VITALS: BP 218/104
[2017-02-18] VITALS (9 sets, daily range): BP systolic 130–184; BP diastolic 57–98
[2017-02-18 02:40] LABS: BASE EXCESS 0.7 mEq/L (-3 to +3); BICARBONATE 26.6 mEq/L (22-26); CARBOXY HGB 2.1 % (0-5); METHEMOGLOBIN 1.5 % (0-1.5); PCO2 46 mm Hg (35-45); PO2 77 mm Hg (80-100); SITE LR; pH 7.37 (7.35-7.45)
[2017-02-18 02:41] LABS: COMMENTS - BLOOD GASES C+; DEVICE CPAP BLEED IN; O2 FLOW 8 L/MIN; TOTAL RESP RATE 28 resp/min
[2017-02-18 03:05] LABS: CARBON DIOXIDE (BICARBONATE) 26.8 MEQ/L (20-31)
[2017-02-18 03:06] LABS: BASOPHIL (%) 0.1 % (0-1); EOSINOPHIL (%) 0 % (0-5); HEMOGLOBIN 14.4 G/DL (11.9-15.5); IMMATURE GRANULOCYTE (%) 1.5 % (0.0-0.7); LYMPHOCYTE (%) 2.7 % (15-42); LYMPHOCYTE COUNT 0.4 K/uL (1.0-2.8); MCH 30.4 PG (29.0-34.0); MCHC 32.7 G/DL (30.0-36.0); MCV 92.8 FL (83-99); MONOCYTE (%) 3.6 % (3-12); MONOCYTE COUNT 0.5 K/uL (0-0.8); NEUTROPHIL (%) 92.1 % (45-76); NEUTROPHIL COUNT 13.2 K/uL (1.8-6.4); RBC DIS.WIDTH-CV 15.5 % (11.8-14.6); RBC DIS.WIDTH-SD 53.4 % (39-53); RED BLOOD COUNT 4.74 M/uL (3.80-5.20); WHITE BLOOD COUNT 14.4 K/uL (4.1-10.2)
[2017-02-18 03:14] LABS: ALBUMIN 4.5 g/dL (3.2-4.8)
[2017-02-18 03:15] LABS: CHLORIDE 102 mEq/L (99-109); SODIUM 136 mEq/L (136-147)
[2017-02-18 03:16] LABS: PLATELET COUNT 199 K/uL (156-360)
[2017-02-18 03:17] LABS: GLUCOSE 275 mg/dL (70-99); TOTAL PROTEIN 7.4 g/dL (6.4-8.3)
[2017-02-18 03:18] LABS: POTASSIUM 5.2 mEq/L (3.7-5.4)
[2017-02-18 03:19] LABS: TOTAL BILIRUBIN 0.8 mg/dL (0.0-1.0)
[2017-02-18 03:20] LABS: ALKALINE PHOSPHATASE 80 IU/L (3-129)
[2017-02-18 03:21] LABS: CREATININE 1.1 mg/dL (0.6-1.3); GFR ESTIMATE (CALCULATED) 51 mL/min/
[2017-02-18 03:22] LABS: AST (GOT) 36 IU/L (2-34)
[2017-02-18 03:23] LABS: ALT (GPT) 28 IU/L (3-49); UREA NITROGEN (BUN) 35 mg/dL (9-23)
[2017-02-18 03:32] LABS: TROP-I INTERPRETATION NEGATIVE; TROPONIN-I 0.02 ng/mL (0.0-0.30)
[2017-02-18 08:48] LABS: BASE EXCESS 0.2 mEq/L (-3 to +3); BICARBONATE 26.5 mEq/L (22-26); CARBOXY HGB 2.2 % (0-5); METHEMOGLOBIN 1.5 % (0-1.5); PCO2 48 mm Hg (35-45); pH 7.35 (7.35-7.45)
[2017-02-18 08:49] LABS: COMMENTS - BLOOD GASES A+C+; DEVICE NC; O2 FLOW 6 L/MIN; PO2 57 mm Hg (80-100); SITE RR
[2017-02-19 04:11] VITALS: BP 128/69
[2017-02-19 07:36] VITALS: BP 194/81
[2017-02-19 11:43] VITALS: BP 177/87
[2017-02-19 15:07] VITALS: BP 154/89
[2017-02-19 19:00] VITALS: BP 137/73
[2017-02-20] VITALS (7 sets, daily range): BP systolic 146–175; BP diastolic 68–94
[2017-02-21 04:00] VITALS: BP 143/81
[2017-02-21 05:58] LABS: CHLORIDE 103 MEQ/L (99-109); CREATININE 1.1 MG/DL (0.6-1.3); GFR ESTIMATE (CALCULATED) 51 mL/min/; GLUCOSE 230 mg/dL (70-99); POTASSIUM 4.5 MEQ/L (3.7-5.4)
[2017-02-21 06:00] LABS: SODIUM 145 MEQ/L (136-147); UREA NITROGEN (BUN) 55 mg/dL (9-23)
[2017-02-21 08:15] VITALS: BP 142/81
[2017-02-21 12:45] VITALS: BP 152/81
[2017-02-21 17:20] VITALS: BP 151/76
[2017-02-21 20:00] VITALS: BP 175/86
[2017-02-22 00:11] VITALS: BP 178/95
[2017-02-22 05:19] VITALS: BP 141/74
[2017-02-22 07:39] VITALS: BP 125/75
[2017-02-22 11:37] VITALS: BP 126/72
[2017-02-22] MEDS ORDERED: DUONEB 2.5-0.5 M3 ML AEROSOL (11:45)
[2017-02-22] MEDS ORDERED: LOSARTAN POTAS100 MG PO (11:55)
[2017-02-22] MEDS ORDERED: CEFTIN250 MG PO (11:57)
[2017-02-22] MEDS ORDERED: PREDNISONE10 MG PO (11:58)
[2017-02-22] MEDS ORDERED: NORCO 5/3251 TABLET PO (11:59)
== END 2017-02-22 15:38 | DRG 190 ==
LOC: EME 07:58 → EDOF 10:15 → 5WEST 10:15 → EDOF 10:15 → ENRESERV 10:16 → 5WEST 11:29 → ENRESERV 02-18 08:53 → 5WEST 02-18 08:59 → CANRESERV 02-18 09:01 → ENRESERV 02-18 09:01 → 5WEST 02-22 15:38
PROVIDERS: Family Medicine; Hospitalist; Nurse Practitioner Family; Physician Assistant Medical
DX: J44.1 Chronic obstructive pulmonary disease with (acute) exacerbation (principal); J96.01 Acute respiratory failure with hypoxia; J44.0 Chronic obstructive pulmonary disease with (acute) lower respiratory infection; J20.9 Acute bronchitis, unspecified; I50.32 Chronic diastolic (congestive) heart failure; I48.91 Unspecified atrial fibrillation; M19.90 Unspecified osteoarthritis, unspecified site; I13.0 Hypertensive heart and chronic kidney disease with heart failure and stage 1 through stage 4 chronic kidney disease, or unspecified chronic kidney disease; E11.22 Type 2 diabetes mellitus with diabetic chronic kidney disease; N18.3 Chronic kidney disease, stage 3 (moderate); E78.5 Hyperlipidemia, unspecified; Z79.01 Long term (current) use of anticoagulants
CPT/HCPCS: 36600; 71045; 71046; 80048; 80053; 82803; 82948; 83605; 83880; 84484; 85025; 85027; 87040; 87502; 93005; 94640; 94640 76; 94660; 94667; 94668; 94799; 99202; 99281; 99285; G0378; J0360; J0696; J1815; J1940; J2060; J2270; J2930; J3475; J7030; J7512; J7644

== ENCOUNTER 2017-07-23 09:38 | Emergency (ER) | payer OTHER ==
[~2017-07-23] VITALS: Ht 160 cm; Wt 108.1 kg
[~2017-07-23 09:38] MED LIST changes: +AZITHROMYCIN250 MG PO; +CARTIA XT120 MG PO; +CEFTIN250 MG PO; +LOSARTAN POTAS100 MG PO; +PREDNISONE10 MG PO
[2017-07-23 11:29] VITALS: BP 120/79
== END 2017-07-23 11:30 | disposition home or self-care (01) ==
LOC: EME 09:38
PROC: 2W3DX1Z Immobilization of Left Lower Arm using Splint (ICD-10-PCS; principal; 2017-07-23)
DX: S52.502A Unspecified fracture of the lower end of left radius, initial encounter for closed fracture (principal); W18.30XA Fall on same level, unspecified, initial encounter; Y93.89 Activity, other specified; J44.9 Chronic obstructive pulmonary disease, unspecified; I10 Essential (primary) hypertension; E11.9 Type 2 diabetes mellitus without complications; Z79.4 Long term (current) use of insulin; Z79.01 Long term (current) use of anticoagulants; Z87.891 Personal history of nicotine dependence; Z88.2 Allergy status to sulfonamides
CPT/HCPCS: 73110; 99281; 99284